=== PATIENT | female | born 1995 ===

== ENCOUNTER 2017-02-03 20:02 | Emergency (ER) | payer SELFPAY ==
[2017-02-03 20:02] VITALS: BMI 25.8
[2017-02-03 20:23] VITALS: BP 116/79
[2017-02-03 20:54] VITALS: O2SAT 98
--- NOTE | 2017-02-03 21:31 | ED PDOC ---
Arrival/HPI <Tej Monsalve - Last Filed: 02/03/17 22:26> - General Historian: Patient - History of Present Illness Time/Duration: 1-3 hours (3 hours) Symptom Onset: Gradual Symptom Course: Unchanged Severity Level: 4 Activities at Onset: Light Context: Home <Chloe Varner - Last Filed: 02/03/17 23:35> - General Chief Complaint: Back Pain Time Seen by Provider: 02/03/17 21:20 - History of Present Illness Narrative History of Present Illness (Text): 21 year old female who presents to the Emergency department complaining of left upper back pain radiating to left neck for 3 hors prior to arrival. Patient denies any recent trauma/injury. Patient states she has been exercising at the [facility] and states last time she exercised was 2 days prior. Patient states pain is achy/tight and worsened with movement. Patient denies any chest pain or shortness of breath. Patient states she took Flexeril at home for pain. Patient denies any abdominal pain, numbness/weakness/tingling in extremities, saddle paresthesias, headache, dizziness, or any other complaints. (Chloe Varenr) Past Medical History - Provider Review Nursing Documentation Reviewed: Yes - Travel History Have you recently traveled outside [place] w/in the past 3 mons?: No - Tetanus Immunization Tetanus Immunization: Unknown - Pulmonary Hx Asthma: Yes (with exertion) - Hematological/Oncological Hx Anemia: Yes - Psychiatric Hx Substance Use: No - Surgical History Hx Appendectomy: Yes - Suicidal Assessment Feels Threatened In Home Enviroment: No <Chloe Varner - Last Filed: 02/03/17 23:35> Family/Social History - Physician Review Nursing Documentation Reviewed: Yes Family/Social History: Unknown Family HX Smoking Status: Never Smoked Hx Alcohol Use: No Hx Substance Use: No <Chloe Varner - Last Filed: 02/03/17 23:35> Allergies/Home Meds <Tej Monsalve - Last Filed: 02/03/17 22:26> <Chloe Varner - Last Filed: 02/03/17 23:35> Allergies/Adverse Reactions: Allergies Penicillins Allergy (Verified 04/30/16 01:18) RASH Review of Systems - Physician Review All systems were reviewed & negative as marked: Yes - Review of Systems Constitutional: Normal. absent: Fevers Respiratory: Normal. absent: SOB, Cough Cardiovascular: Normal. absent: Chest Pain Gastrointestinal: Normal. absent: Abdominal Pain, Diarrhea, Nausea, Vomiting Genitourinary Female: Normal. absent: Dysuria, Frequency, Hematuria, Urine Output Changes Musculoskeletal: Back Pain. absent: Neck Pain Skin: Normal. absent: Rash Neurological: Normal. absent: Headache, Dizziness Psychiatric: absent: Anxiety, Depression <Chloe Varner T - Last Filed: 02/03/17 23:35> Physical Exam Vital Signs Reviewed: Yes Temperature: Afebrile Blood Pressure: Normal Pulse: Regular Respiratory Rate: Normal Appearance: Positive for: Well-Appearing, Non-Toxic, Comfortable Pain Distress: None Mental Status: Positive for: Alert and Oriented X 3 - Systems Exam Head: Present: Atraumatic, Normocephalic Mouth: Present: Moist Mucous Membranes Neck: Present: Normal Range of Motion, Paraspinal Tenderness (Left trapezius/ rhomboideus tenderness, no edema, no erythema), Trachea Midline. No: Meningeal Signs, MIDLINE TENDERNESS, Lymphadenopathy Respiratory/Chest: Present: Clear to Auscultation, Good Air Exchange. No: Respiratory Distress, Accessory Muscle Use Cardiovascular: Present: Regular Rate and Rhythm, Normal S1, S2. No: Murmurs Abdomen: Present: Normal Bowel Sounds. No: Tenderness, Distention, Peritoneal Signs Back: Present: Paraspinal Tenderness (Left trapezius/rhomboideus tenderness), Other (Moving all extremities). No: CVA Tenderness, Midline Tenderness Upper Extremity: Present: Normal Inspection, Normal ROM, NORMAL PULSES, Neurovascularly Intact, Capillary Refill < 2s. No: Cyanosis, Edema, Tenderness , Swelling, Erythema, Temperature Abnormalties, Deformity Lower Extremity: Present: Normal Inspection, NORMAL PULSES, Normal ROM, Neurovascularly Intact, Capillary Refill < 2 s. No: Edema, Tenderness, Swelling , Erythema, Deformity, Temperature Abnormalties Neurological: Present: GCS=15, Speech Normal, Motor Func Grossly Intact, Normal Sensory Function Skin: Present: Warm, Dry, Normal Color. No: Rashes Psychiatric: Present: Alert, Oriented x 3 <Chloe Varner T - Last Filed: 02/03/17 23:35> Vital Signs Temp Pulse Resp BP Pulse Ox 02/03/17 23:23 98.9 F 80 18 98 02/03/17 20:53 99.0 F 78 16 98 02/03/17 20:20 99.0 F 78 18 116/79 99 Medical Decision Making <Tej Monsalve - Last Filed: 02/03/17 22:26> <Chloe Varner - Last Filed: 02/03/17 23:35> ED Course and Treatment: 02/03/17 23:13 Patient nontoxic well-appearing in no distress with stable vital signs. toradol IM Patient reassessment: Feeling better with medications ambulating with a steady gait. Muscle strength 5 out of 5 bilaterally. I advised to followup with the orthopedist within the next 2 days. Return if symptoms worsen persist or new symptoms develop Patient verbalizes understanding of discharge instructions and need for immediate followup. all aspects of this case were discussed the attending of record. Impression: Back pain Motrin every 6 hours as needed for pain Flexeril one tablet every 8 hours as needed for muscle spasms: May cause drowsiness Followup with the orthopedist within the next 2 days Followup with primary care physician within the next 2 days Return if symptoms worsen persist or if new symptoms develop (Chloe Varner) - Medication Orders Current Medication Orders: Discontinued Medications Ketorolac Tromethamine (Toradol) 60 mg IM STAT STA Stop: 02/03/17 21:30 Last Admin: 02/03/17 22:57 Dose: 60 mg - PA / TRESTLE MECHANIC / Resident Statement MD/DO has reviewed & agrees with the documentation as recorded. <Tej Monsalve - Last Filed: 02/03/17 22:26> - Scribe Statement The provider has reviewed the documentation as recorded by the Scribe <Chloe Varner - Last Filed: 02/03/17 23:35> - Scribe Statement Myra Arce All medical record entries made by the Scribe were at my direction and personally dictated by me. I have reviewed the chart and agree that the record accurately reflects my personal performance of the history, physical exam, medical decision making, and the department course for this patient. I have also personally directed, reviewed, and agree with the discharge instructions and disposition. (Chloe Varner) Disposition/Present on Arrival <Tej Monsalve - Last Filed: 02/03/17 22:26> - Present on Arrival Any Indicators Present on Arrival: No History of DVT/PE: No History of Uncontrolled Diabetes: No Urinary Catheter: No History of Decub. Ulcer: No History Surgical Site Infection Following: None - Disposition Have Diagnosis and Disposition been Completed?: Yes Disposition Time: 21:29 Patient Plan: Discharge <Chloe Varner Axel - Last Filed: 02/03/17 23:35> - Disposition Diagnosis: Back pain, Neck pain Disposition: HOME/ ROUTINE Condition: GOOD Discharge Instructions (ExitCare): Muscle Spasm (ED), Back Pain (ED) Additional Instructions: Motrin every 6 hours as needed for pain Flexeril one tablet every 8 hours as needed for muscle spasms: May cause drowsiness Followup with the orthopedist within the next 2 days Followup with primary care physician within the next 2 days Return if symptoms worsen persist or if new symptoms develop Prescriptions: Cyclobenzaprine [Cyclobenzaprine HCl] 10 mg PO Q8 #10 tab Ibuprofen [Motrin] 600 mg PO Q6H PRN #20 tab PRN Reason: pain/fever reduction Referrals: Nayan Michaels DO [Staff Provider] - Follow up with primary PCP,NO [Primary Care Provider] - Follow up with primary Forms: [employer] (Kiswahili), WORK NOTE
[2017-02-03 23:23] VITALS: PULSE 80; RESP 18; TEMP 98.9
== END 2017-02-03 23:24 | disposition home or self-care (01) ==
LOC: ED 20:02
DX: M54.6 Pain in thoracic spine (principal); M54.2 Cervicalgia
CPT/HCPCS: 96372; 99282; J1885

== ENCOUNTER 2017-04-16 20:00 | Emergency (ER) | payer SELFPAY ==
[2017-04-16 20:00] VITALS: BMI 25.8
[2017-04-16 20:31] VITALS: RESP 16; TEMP 98.8
--- NOTE | 2017-04-16 21:32 | ED PDOC ---
Arrival/HPI - General Historian: Patient - History of Present Illness Time/Duration: > month Symptom Onset: Sudden Symptom Course: Unchanged Severity Level: Mild <Deborah Mistry - Last Filed: 04/16/17 22:40> <Tej Monsalve - Last Filed: 04/17/17 00:18> - General Chief Complaint: Abdominal Pain Time Seen by Provider: 04/16/17 21:16 - History of Present Illness Narrative History of Present Illness (Text): 04/16/17 21:25 21F w/PMH sig for irregular menstrual cycle evaluated for Left flank pain x 3 mos. Pt reports she has intermittent, non-radiating, sharp left flank pain over the last 3 months. No aggravating, alleviating or inciting factors identified. Pt reports intermittent menstrual spotting x 3 mos, intermittent diarrhea x 2 wks. Denies N/V/F/C, shortness of breath, chest pain, palpitations, fatigue, weakness, hematuria, dysuria, urinary frequency, dysparenuria, abnormal vaginal discharge, other complaints. PMH: irregular menstrual cycle PSH: Denies All: PCN (hives) SH: Admits to occasional ETOH use (1-2 drinks per week), denies tobacco or illicit drug use; 4 life time sexual partners, uses condoms, last regular menstrual period was over 3 mos ago. Has appointment with obgyn in May. Obgyn (outpatient): [facility]: Mother has irregular periods- cervical cancer (Deborah Mistry) Past Medical History - Provider Review Nursing Documentation Reviewed: Yes - Tetanus Immunization Tetanus Immunization: Unknown - Pulmonary Hx Asthma: Yes (with exertion) - Hematological/Oncological Hx Anemia: Yes - Psychiatric Hx Substance Use: No - Surgical History Hx Appendectomy: Yes - Suicidal Assessment Feels Threatened In Home Enviroment: No <Deborah Mistry - Last Filed: 04/16/17 22:40> Family/Social History - Physician Review Nursing Documentation Reviewed: Yes Family/Social History: Neoplasm/Cancer (mother with cervical cancer) Smoking Status: Never Smoked Hx Alcohol Use: No Hx Substance Use: No <Deborah Mistry - Last Filed: 04/16/17 22:40> Allergies/Home Meds <Deborah Mistry - Last Filed: 04/16/17 22:40> <Tej Monsalve - Last Filed: 04/17/17 00:18> Allergies/Adverse Reactions: Allergies Penicillins Allergy (Verified 04/30/16 01:18) RASH Home Medications: Home Meds Medication Instructions Recorded Confirmed No Known Home Med 04/16/17 04/16/17 Review of Systems - Physician Review All systems were reviewed & negative as marked: Yes - Review of Systems Constitutional: Normal. absent: Fatigue, Fevers Eyes: Normal ENT: Normal Respiratory: Normal Cardiovascular: Normal Gastrointestinal: Abdominal Pain (intermittent), Diarrhea. absent: Constipation , Nausea, Vomiting, Appetite Changes, Hematochezia, Hematemesis Genitourinary Female: Normal. absent: Dysuria, Frequency, Hematuria Musculoskeletal: Normal Skin: Normal Neurological: Normal <Deborah Mistry - Last Filed: 04/16/17 22:40> Physical Exam Vital Signs Reviewed: Yes Temperature: Afebrile Blood Pressure: Normal Pulse: Regular Respiratory Rate: Normal Appearance: Positive for: Well-Appearing, Non-Toxic, Comfortable Pain Distress: None Mental Status: Positive for: Alert and Oriented X 3 - Systems Exam Head: Present: Atraumatic, Normocephalic Extroacular Muscles: Present: EOMI Conjunctiva: Present: Normal Mouth: Present: Moist Mucous Membranes Nose (External): Present: Atraumatic Neck: Present: Normal Range of Motion Respiratory/Chest: Present: Clear to Auscultation, Good Air Exchange. No: Respiratory Distress, Accessory Muscle Use Cardiovascular: Present: Regular Rate and Rhythm, Normal S1, S2. No: Murmurs Abdomen: Present: Normal Bowel Sounds. No: Tenderness, Distention, Peritoneal Signs, Rebound, McBurney's Point Tender, Rovsing's Sign Present, Hernias Genitourinary/Pelvic Exam: Present: Normal External Genitalia, Vaginal Bleeding (scant), Other (slight tenderness upon palpation of cervix). No: Vaginal Discharge, Vaginal Lesions, Adenexal Mass, Odor Back: Present: Normal Inspection Upper Extremity: Present: Normal Inspection. No: Cyanosis, Edema Lower Extremity: Present: Normal Inspection. No: Edema Neurological: Present: GCS=15, CN II-XII Intact, Speech Normal Skin: Present: Warm, Dry, Normal Color. No: Rashes Psychiatric: Present: Alert, Oriented x 3, Normal Insight, Normal Concentration <Deborah Mistry - Last Filed: 04/16/17 22:40> Vital Signs Temp Pulse Resp BP Pulse Ox 04/16/17 20:30 98.8 F 80 16 135/88 99 Medical Decision Making <Deborah Mistry - Last Filed: 04/16/17 22:40> - Lab Interpretations I have reviewed the lab results: Yes <Tej Monsalve - Last Filed: 04/17/17 00:18> ED Course and Treatment: 04/16/17 21:34 Patient seen/evaluated, will order test and perform pelvic exam 04/16/17 22:39 labs reviewed - Hgb 12.9, Hct 38.8. HCG negative. (Deborah Mistry) 04/16/17 21:58 Pty. seen and evaluated with the electromedical equipment technician.Agree with HPI,clinical findings and treatment plan 04/16/17 23:01 In agreement with resident note, which includes further HPI details. Patient was seen and evaluated with resident, came up with plan and treatment together. 21 year old female presents complaining of irregular menstrual cycle and left flank pain for the past 3 months. (Tej Monsalve) - Lab Interpretations Lab Results: 04/16/17 22:15 Lab Results 04/16/17 22:15: WBC 5.8, RBC 4.43, Hgb 12.9, Hct 38.8, MCV 87.6, MCH 29.1, MCHC 33.2, RDW 13.5, Plt Count 300, MPV 11.2 H 04/16/17 22:00: Urine HCG, Qual Negative <Deborah Mistry - Last Filed: 04/16/17 22:40> - PA / [employer] WORK SUPERVISOR / Resident Statement / has reviewed & agrees with the documentation as recorded. MD/ has examined the patient and agrees with the treatment plan. - Scribe Statement The provider has reviewed the documentation as recorded by the Scribe <Tej Monsalve - Last Filed: 04/17/17 00:18> - Scribe Statement Luana Lopez Provider Scribe Attestation: All medical record entries made by the Scribe were at my direction and personally dictated by me. I have reviewed the chart and agree that the record accurately reflects my personal performance of the history, physical exam, medical decision making, and the department course for this patient. I have also personally directed, reviewed, and agree with the discharge instructions and disposition. (Tej Monsalve) Disposition/Present on Arrival - Present on Arrival Any Indicators Present on Arrival: No History of DVT/PE: No History of Uncontrolled Diabetes: No Urinary Catheter: No History of Decub. Ulcer: No History Surgical Site Infection Following: None - Disposition Have Diagnosis and Disposition been Completed?: Yes Disposition Time: 22:41 Patient Plan: Discharge <Deborah Mistry - Last Filed: 04/16/17 22:40> <Tej Monsalve - Last Filed: 04/17/17 00:18> - Disposition Diagnosis: Menometrorrhagia Disposition: HOME/ ROUTINE Patient Problems: Current Active Problems Problem Status Onset Menometrorrhagia Acute Condition: STABLE Discharge Instructions (ExitCare): Syedtejeniferchmerz (ED), Menorrhagia (ED) Additional Instructions: Please follow up with your primary care provider or obgyn for further evaluation /treatment. Forms: [employer] (Sammarinese)
[2017-04-16 22:33] LABS: HEMATOCRIT 38.8 % (36.0-48.0); MEAN CELL VOLUME 87.6 fl (80.0-105.0); MEAN CORPUSCULAR HEMOGLOBIN 29.1 pg (25.0-35.0); MEAN CORPUSCULAR HGB CONC 33.2 g/dl (31.0-37.0); MEAN PLATELET VOLUME 11.2 fl (7.0-11.0); RED CELL DISTRIBUTION WIDTH 13.5 % (11.5-14.5); WHITE BLOOD COUNT 5.8 10^3/ul (4.5-11.0)
[2017-04-17 04:19] VITALS: BP 132/84; PULSE 82; O2SAT 100
== END 2017-04-16 23:45 | disposition home or self-care (01) ==
LOC: ED 20:00
DX: N92.1 Excessive and frequent menstruation with irregular cycle (principal)

== ENCOUNTER 2017-12-07 04:22 | Emergency (ER) | payer SELFPAY ==
[2017-12-07 04:34] VITALS: BMI 34.7
[2017-12-07 04:41] VITALS: BP 132/96; RESP 18; TEMP 98.4
[2017-12-07] MEDS ORDERED: Sodium Chloride 0.9% 1,000 ML IV STA (05:02)
--- NOTE | 2017-12-07 05:06 | ED PDOC ---
Arrival/HPI - General Chief Complaint: Abdominal Pain Time Seen by Provider: 12/07/17 04:58 Historian: Patient - History of Present Illness Narrative History of Present Illness (Text): 12/07/17 05:02 Meliza Banegas is a 22 year old female, with no signficiant past medical history, who prsents to the Emergency department complaining of occasional episodes of epigastric discomfort for the past 2 weeks. Patient reports associated occasional nausea and diarrhea. Patient denies any fever, chills, chest pain, shortness of breath, urinary symptoms, back pain, neck pain, headache, dizziness, or any other complaints. Symptom Onset: Gradual Symptom Course: Unchanged Activities at Onset: Light Context: Home Past Medical History - Provider Review Nursing Documentation Reviewed: Yes - Tetanus Immunization Tetanus Immunization: Unknown - Pulmonary Hx Asthma: Yes (with exertion) - Hematological/Oncological Hx Anemia: Yes - Psychiatric Hx Psychophysiologic Disorder: No Hx Substance Use: No - Surgical History Hx Appendectomy: Yes - Anesthesia Hx Anesthesia: No - Suicidal Assessment Feels Threatened In Home Enviroment: No Family/Social History - Physician Review Nursing Documentation Reviewed: Yes Family/Social History: No Known Family HX Smoking Status: Never Smoked Hx Alcohol Use: No Hx Substance Use: No Allergies/Home Meds Allergies/Adverse Reactions: Allergies Penicillins Allergy (Verified 12/07/17 04:34) RASH Review of Systems - Physician Review All systems were reviewed & negative as marked: Yes - Review of Systems Constitutional: Normal. absent: Fevers Eyes: Normal ENT: Normal Respiratory: Normal. absent: SOB, Cough Cardiovascular: Normal. absent: Chest Pain Gastrointestinal: Abdominal Pain, Diarrhea, Nausea. absent: Food Intolerance Genitourinary Female: Normal. absent: Dysuria, Frequency, Hematuria, Urine Output Changes Musculoskeletal: Normal. absent: Back Pain, Neck Pain Skin: Normal. absent: Rash Neurological: Normal. absent: Headache, Dizziness Endocrine: Normal Hemo/Lymphatic: Normal Psychiatric: Normal Physical Exam Vital Signs Reviewed: Yes Vital Signs Temp Pulse Resp BP Pulse Ox 12/07/17 06:46 75 18 100 12/07/17 04:40 98.4 F 70 18 132/96 H 98 Temperature: Afebrile Blood Pressure: Normal Pulse: Regular Respiratory Rate: Normal Appearance: Positive for: Well-Appearing, Non-Toxic, Comfortable Pain Distress: None Mental Status: Positive for: Alert and Oriented X 3 - Systems Exam Head: Present: Atraumatic, Normocephalic Pupils: Present: PERRL Extroacular Muscles: Present: EOMI Conjunctiva: Present: Normal Mouth: Present: Moist Mucous Membranes Neck: Present: Normal Range of Motion Respiratory/Chest: Present: Clear to Auscultation, Good Air Exchange. No: Respiratory Distress, Accessory Muscle Use Cardiovascular: Present: Regular Rate and Rhythm, Normal S1, S2. No: Murmurs Abdomen: No: Tenderness, Distention, Peritoneal Signs Back: Present: Normal Inspection Upper Extremity: Present: Normal Inspection. No: Cyanosis, Edema Lower Extremity: Present: Normal Inspection. No: Edema Neurological: Present: GCS=15, CN II-XII Intact, Speech Normal Skin: Present: Warm, Dry, Normal Color. No: Rashes Psychiatric: Present: Alert, Oriented x 3, Normal Insight, Normal Concentration Medical Decision Making ED Course and Treatment: 12/07/17 05:02 Impression: 22 year old female complaining of occasional epigastric discomfort with nausea and diarrhea x2 weeks. Differential Diagnosis included but are not limited to: gastritis Plan: -- Labs, lipase -- IV fluids -- Zofran -- Pepcid -- Toradol -- Reassess and disposition Progress Notes: 12/07/17 06:23 On re-evaluation, patient feels better and is in no acute distress. I have discussed the results and plan with the patient, who expresses understanding. Patient in agreement with plan to be discharged home. Patient is stable for discharge. Patient was instructed to follow up with physician or return if symptoms worsen or new concerning symptoms arise. - Lab Interpretations Lab Results: 12/07/17 05:44 12/07/17 05:44 Lab Results 12/07/17 05:44: WBC 4.5 D, RBC 4.73, Hgb 13.5, Hct 40.4, MCV 85.4, MCH 28.5, MCHC 33.4, RDW 13.6, Plt Count 310, MPV 11.1 H 12/07/17 05:44: Sodium 143, Potassium 4.2, Chloride 106, Carbon Dioxide 23, Anion Gap 17, BUN 13, Creatinine 0.7, Est GFR ( Amer) > 60, Est GFR (Non- Af Amer) > 60, Random Glucose 117 H, Calcium 9.1, Total Bilirubin 0.3, AST 29, ALT 32, Alkaline Phosphatase 74, Total Protein 7.6, Albumin 4.1, Globulin 3.5, Albumin/Globulin Ratio 1.1, Lipase 45 I have reviewed the lab results: Yes - Medication Orders Current Medication Orders: Discontinued Medications Famotidine (Pepcid) 20 mg IVP STAT STA Stop: 12/07/17 05:03 Last Admin: 12/07/17 06:13 Dose: 20 mg IVP Administration Document 12/07/17 06:13 SS (Rec: 12/07/17 06:13 SS [id number]) Charges for Administration # of IVP Administrations 1 Sodium Chloride (Sodium Chloride 0.9%) 1,000 mls @ 999 mls/hr IV .Q1H1M STA Stop: 12/07/17 06:02 Last Admin: 12/07/17 06:13 Dose: 999 mls/hr eMAR Start Stop Document 12/07/17 06:13 SS (Rec: 12/07/17 06:13 SS [id number]) Intravenous Solution Start Date 12/07/17 Start Time 06:13 End Date 12/07/17 End time 07:13 Total Infusion Time 60 Ketorolac Tromethamine (Toradol) 30 mg IVP ONCE ONE Stop: 12/07/17 05:46 Last Admin: 12/07/17 06:12 Dose: 30 mg MAR Pain Assessment Document 12/07/17 06:12 SS (Rec: 12/07/17 06:12 SS [id number]) Pain Reassessment Is this a pain reassessment? No Sleep Is patient sleeping during reassessment? Yes Pain Scale Used Pain Scale Used Numeric Location Pain Location Body Site Abdomen Description Description Intermittent Intensity of Pain at present 10 Pain Behavior Grasping Site Rubbing Site Restlessness Facial Grimacing IVP Administration Document 12/07/17 06:12 SS (Rec: 12/07/17 06:12 SS [id number]) Charges for Administration # of IVP Administrations 1 Ondansetron HCl (Zofran Inj) 4 mg IVP ONCE ONE Stop: 12/07/17 05:03 Last Admin: 12/07/17 06:12 Dose: 4 mg IVP Administration Document 12/07/17 06:12 SS (Rec: 12/07/17 06:13 SS [id number]) Charges for Administration # of IVP Administrations 1 - Scribe Statement The provider has reviewed the documentation as recorded by the Scribe Myra Arce Provider Scribe Attestation: All medical record entries made by the Scribe were at my direction and personally dictated by me. I have reviewed the chart and agree that the record accurately reflects my personal performance of the history, physical exam, medical decision making, and the department course for this patient. I have also personally directed, reviewed, and agree with the discharge instructions and disposition. Disposition/Present on Arrival - Present on Arrival Any Indicators Present on Arrival: No History of DVT/PE: No History of Uncontrolled Diabetes: No Urinary Catheter: No History of Decub. Ulcer: No History Surgical Site Infection Following: None - Disposition Have Diagnosis and Disposition been Completed?: Yes Diagnosis: Gastritis Disposition: HOME/ ROUTINE Disposition Time: 06:23 Patient Plan: Discharge Condition: GOOD Discharge Instructions (ExitCare): Gastritis (DC) Additional Instructions: Avoid large meals/avoid eating prior to lying down/avoid any caffeinated foodstuffs i.e. coffee/take meds as prescribed/follow up with your doctor this week Prescriptions: Pantoprazole Sodium [Protonix] 40 mg PO DAILY #14 ect Forms: [employer] (Divehi)
[2017-12-07 06:05] LABS: HEMOGLOBIN 13.5 g/dL (12.0-16.0); MEAN CELL VOLUME 85.4 fl (80.0-105.0); MEAN CORPUSCULAR HEMOGLOBIN 28.5 pg (25.0-35.0); MEAN CORPUSCULAR HGB CONC 33.4 g/dl (31.0-37.0); MEAN PLATELET VOLUME 11.1 fl (7.0-11.0); RBC 4.73 10^6/uL (3.5-6.1); RED CELL DISTRIBUTION WIDTH 13.6 % (11.5-14.5); WHITE BLOOD COUNT 4.5 10^3/ul (4.5-11.0)
[2017-12-07 06:13] LABS: ALB/GLOB RATIO 1.1 (1.1-1.8); ALBUMIN 4.1 g/dL (3.0-4.8); ALT/SGPT 32 U/L (7-56); AST/SGOT 29 U/L (14-36); BLOOD UREA NITROGEN 13 mg/dL (7-21); CALCIUM 9.1 mg/dL (8.4-10.5); GFR AFRICAN-AMERICAN > 60; GFR NON-AFRICAN AMERICAN > 60; LIPASE 45 U/L (23-300)
[2017-12-07 06:46] VITALS: PULSE 75; O2SAT 100
== END 2017-12-07 06:47 | disposition home or self-care (01) ==
LOC: ED 04:22
DX: K29.70 Gastritis, unspecified, without bleeding (principal)
CPT/HCPCS: 80053; 83690; 85027; 96361; 96374; 96375; 99283; J1885; J2405; J7030

== ENCOUNTER 2018-09-20 06:17 | Emergency (ER) | payer BC ==
[2018-09-20 06:18] VITALS: BMI 34.7
[2018-09-20 06:44] VITALS: RESP 18; TEMP 97.9
[2018-09-20] MEDS ORDERED: LIDOCAINE 2% PO PRN (07:13)
[2018-09-20] MEDS ORDERED: VISCOUS PO PRN (07:13)
[2018-09-20] MEDS ORDERED: DIPHENHYDRAMINE PO PRN (07:13)
[2018-09-20] MEDS ORDERED: MAGNESIUM PO PRN (07:13)
[2018-09-20] MEDS ORDERED: ALUMINUM HYDROXIDE PO PRN (07:13)
[2018-09-20] MEDS ORDERED: Alum-Mag Hydrox-Simethicone Susp (30 mL) ONE (07:40)
--- NOTE | 2018-09-20 07:42 | ED PDOC ---
Arrival/HPI - General Chief Complaint: Dental Pain Historian: Patient - History of Present Illness Narrative History of Present Illness (Text): 09/20/18 07:30 23 y/o F, with no significant past medical history, who present to the Emergency department with right cheek pain, dental pain coming from the wisdom teeth, and right ear pain that started five days ago. Patient expresses difficulty opening her mouth due to pain. Patient states she has tried taking Advil, using salt water, and icing the right swollen area of the cheek without any significant relief. Patient states subjective fever and chills last night but denies taking any medication. Patient denies any discharge from gums, chest pain, shortness of breath, nausea, vomiting, diarrhea, urinary symptoms, back pain, neck pain, headache, dizziness, or any other complaints. Time/Duration: < week (5 days) Symptom Course: Worsening Quality: Aching Activities at Onset: Light Context: Home Past Medical History - Provider Review Nursing Documentation Reviewed: Yes - Infectious Disease Hx of Infectious Diseases: None - Tetanus Immunization Tetanus Immunization: Unknown - Pulmonary Hx Asthma: Yes (with exertion) - Hematological/Oncological Hx Anemia: Yes - Psychiatric Hx Psychophysiologic Disorder: No Hx Substance Use: No - Surgical History Hx Appendectomy: Yes - Anesthesia Hx Anesthesia: No - Suicidal Assessment Feels Threatened In Home Enviroment: No Family/Social History - Physician Review Nursing Documentation Reviewed: Yes Family/Social History: Unknown Family HX Smoking Status: Never Smoked Hx Alcohol Use: No Hx Substance Use: No Allergies/Home Meds Allergies/Adverse Reactions: Allergies Penicillins Allergy (Verified 09/20/18 06:28) RASH Review of Systems - Physician Review All systems were reviewed & negative as marked: Yes - Review of Systems Constitutional: Fevers. absent: Fatigue Eyes: absent: Photophobia ENT: TMJ Pain (Right ear pain), Other (Right sided dental pain). absent: Sinus Congestion Respiratory: absent: SOB, Cough, Wheezing Cardiovascular: absent: Chest Pain, Palpitations Gastrointestinal: absent: Abdominal Pain, Diarrhea, Nausea, Vomiting Skin: absent: Rash Neurological: absent: Headache, Dizziness, Focal Weakness, Speech Changes, Facial Droop Physical Exam Vital Signs Reviewed: Yes Vital Signs Temp Pulse Resp BP Pulse Ox 09/20/18 06:26 97.9 F 68 18 119/86 98 Temperature: Afebrile Blood Pressure: Normal Pulse: Regular Respiratory Rate: Normal Appearance: Positive for: Well-Appearing Pain Distress: None Mental Status: Positive for: Alert and Oriented X 3 - Systems Exam Head: Present: Atraumatic, Normocephalic Pupils: Present: PERRL. No: Non-Reactive Extroacular Muscles: Present: EOMI Conjunctiva: Present: Normal Ears: Present: NORMAL TM (Bilaterally opaque ), Erythema (Right external ear canal ) Mouth: Present: Moist Mucous Membranes, Other (Post auricular tenderness notes to the right and no erythema. No mastoid tenderness. ) Pharnyx: Present: Other (no purulent or bloody discharge to hard palate. ). No: EXUDATE, TONSILS ENLARGED (No tonsilar swelling), Uvular Deviation Neck: Present: Normal Range of Motion Respiratory/Chest: Present: Clear to Auscultation, Good Air Exchange. No: Respiratory Distress, Accessory Muscle Use Cardiovascular: Present: Regular Rate and Rhythm, Normal S1, S2. No: Murmurs Upper Extremity: Present: Normal Inspection. No: Cyanosis, Edema Lower Extremity: Present: Normal Inspection. No: Edema Neurological: Present: GCS=15, Speech Normal Skin: Present: Warm, Dry, Normal Color. No: Rashes Psychiatric: Present: Alert, Oriented x 3, Normal Insight, Normal Concentration Medical Decision Making ED Course and Treatment: 09/20/18 08:03 Impression: 23 year old female who present to the emergency department with right sided dental pain. Differential Diagnosis included but are not limited to: -- Mastoiditis -- Peritonsilar abscess -- periapical abscess -- ANUG ( acute narcotizing ulcerative gingivitis) Plan: -- CT Mandible w/o contrast -- Maalox --Labs -- Reassess and disposition Prior Visits: Notes and results from previous visits were reviewed. Progress Notes: 09/20/18 08:11 - RAD Interpretation Narrative RAD Interpretations (Text): 09/20/18 09:02 CT Maxillofacial reviewed by radiologist, shows: FINDINGS: NASAL BONES: The nasal bones are intact. ORBITS: The globes are symmetric. No evidence for preseptal orbital cellulitis. PARANASAL SINUSES/ MASTOIDS: Well developed and well aerated without mucosal thickening or fluid. MAXILLA: Within normal limits. MANDIBLE/ TEMPOROMANDIBULAR JOINTS: Normal in appearance. SKULL BASE: Unremarkable. TEMPORAL BONES: Middle ears and mastoid grossly unremarkable. OTHER FINDINGS: None. IMPRESSION: Unremarkable non contrast enhanced CT of the maxillofacial bones. Maintenance Analyst: Radiologist - Medication Orders Current Medication Orders: Al Hydrox/Mg Hydrox/Simethicone 30 ml/Diphenhydramine HCl 50 mg/Lidocaine 30 ml 0 ml PO Q2H PRN PRN Reason: Mouth/Throat Pain - Scribe Statement The provider has reviewed the documentation as recorded by the Jajaibe Nayla malhotra with [facility] All medical record entries made by the Scribe were at my direction and personally dictated by me. I have reviewed the chart and agree that the record accurately reflects my personal performance of the history, physical exam, medical decision making, and the department course for this patient. I have also personally directed, reviewed, and agree with the discharge instructions and disposition. Disposition/Present on Arrival - Present on Arrival Any Indicators Present on Arrival: No History of DVT/PE: No History of Uncontrolled Diabetes: No Urinary Catheter: No History of Decub. Ulcer: No History Surgical Site Infection Following: None - Disposition Have Diagnosis and Disposition been Completed?: Yes Diagnosis: Jaw pain Disposition: HOME/ ROUTINE Disposition Time: 08:46 Patient Plan: Discharge Patient Problems: Current Active Problems Problem Status Onset Jaw pain Acute Condition: STABLE Discharge Instructions (ExitCare): Temporomandibular Joint (TMJ) Disorders ( DC), Dental Pain (DC) Print Language: KINYARWANDA Additional Instructions: All medical record entries made by the Scribe were at my direction and personal ly dictated by me. I have reviewed the chart and agree that the record accurately reflects my personal performance of the history, physical exam, medical decision making, and the department course for this patient. I have also personally directed, reviewed, and agree with the discharge instructions and disposition. Please follow up with your dentist in the next 10 days Take antibiotics as prescribed If you need to, try to schedule an appointment with a dental clinic 1. [address], [place] [address] 2. [facility] [address] [address] 3. [facility] [address] [place] [address] Prescriptions: Clindamycin [Cleocin] 300 mg PO Q12 10 Days #20 cap Mag&Al/Simet/Diphen/Lido [First Magic Mouthwash] 30 ml MM Q4 #1 kit Forms: [employer] (Upper [place])
[2018-09-20 08:02] LABS: BASO # 0.03 K/mm3 (0.0-2.0); BASO % 0.7 % (0.0-3.0); EOS # 0.1 (0.0-0.7); EOS % 1.3 % (1.5-5.0); HEMOGLOBIN 12.5 g/dL (12.0-16.0); LYMPH # 1.6 (1.2-3.4); LYMPH % 35.7 % (22.0-35.0); MEAN CELL VOLUME 87.6 fl (80.0-105.0); MEAN CORPUSCULAR HEMOGLOBIN 28.6 pg (25.0-35.0); MEAN CORPUSCULAR HGB CONC 32.6 g/dl (31.0-37.0); MEAN PLATELET VOLUME 11.2 fl (7.0-11.0); MONO # 0.5 (0.1-0.6); MONO % 11.5 % (1.0-6.0); RBC 4.37 10^6/uL (3.5-6.1); RED CELL DISTRIBUTION WIDTH 13.5 % (11.5-14.5); WHITE BLOOD COUNT 4.6 10^3/uL (4.5-11.0)
[2018-09-20 08:07] LABS: ALB/GLOB RATIO 1.1 (1.1-1.8); ALBUMIN 4.1 g/dL (3.0-4.8); ALT/SGPT 28 U/L (7-56); AST/SGOT 24 U/L (14-36); BLOOD UREA NITROGEN 12 mg/dL (7-21); CALCIUM 8.7 mg/dL (8.4-10.5); GFR NON-AFRICAN AMERICAN > 60
--- NOTE | 2018-09-20 08:41 | CT ---
Date of service: 09/20/2018 PROCEDURE: CT MAXILLOFACIAL BONES WITHOUT CONTRAST HISTORY: jaw/post auric. pain w/ swelling r/o mastoiditis COMPARISON: None available. TECHNIQUE: Contiguous axial CT images of the maxillofacial bones were obtained. Coronal and sagittal reformats were generated. Radiation dose: Total exam DLP = 1331.22 mGy-cm. This CT exam was performed using one or more of the following dose reduction techniques: Automated exposure control, adjustment of the mA and/or kV according to patient size, and/or use of iterative reconstruction technique. FINDINGS: NASAL BONES: The nasal bones are intact. ORBITS: The globes are symmetric. No evidence for preseptal orbital cellulitis. PARANASAL SINUSES/ MASTOIDS: Well developed and well aerated without mucosal thickening or fluid. MAXILLA: Within normal limits. MANDIBLE/ TEMPOROMANDIBULAR JOINTS: Normal in appearance. SKULL BASE: Unremarkable. TEMPORAL BONES: Middle ears and mastoid grossly unremarkable. OTHER FINDINGS: None. IMPRESSION: Unremarkable non contrast enhanced CT of the maxillofacial bones.
[2018-09-20 09:07] VITALS: BP 120/73; PULSE 81; O2SAT 99
== END 2018-09-20 09:06 | disposition home or self-care (01) ==
LOC: ED 06:17
DX: R68.84 Jaw pain (principal)